=== PATIENT | male | born 1940 | race Caucasian/White ===

== ENCOUNTER 2018-04-24 22:45 | Inpatient (IN) | payer OTHER ==
[~2018-04-24] VITALS: Ht 177.8 cm; Wt 69.3 kg
[~2018-04-24 22:45] MED LIST: ADVAIR 250-501 EACH IH; ALTACE10 MG PO; Lactinex,Floranex PO; Levaquin PO; NEXIUM40 MG PO; PROVENTIL,2.5 MG/0.5 IH; THEO-DUR,THEOC200 MG PO; Tylenol Regular Stre PO; VENTOLIN5 MG/1 ML IH; predniSONE PO
[2018-04-24 23:18] LABS: HEMATOCRIT 41.2 % (38.0-50.0); HEMOGLOBIN 13.6 G/DL (12.5-16.6); MCH 28.7 PG (29.0-34.0); MCV 86.9 FL (86-99); PLATELET COUNT 228 K/uL (156-360); RBC DIS.WIDTH-CV 17.5 % (11.8-14.6); RBC DIS.WIDTH-SD 55.8 % (39-53); RED BLOOD COUNT 4.74 M/uL (4.00-5.50); WHITE BLOOD COUNT 9.7 K/uL (4.1-10.2)
[2018-04-24 23:26] LABS: ALBUMIN 3.8 g/dL (3.2-4.8)
[2018-04-24 23:27] LABS: CHLORIDE 103 mEq/L (99-109); POTASSIUM 3.6 mEq/L (3.7-5.4); SODIUM 138 mEq/L (136-147)
[2018-04-24 23:29] LABS: GLUCOSE 151 mg/dL (70-99); TOTAL PROTEIN 7.4 g/dL (6.4-8.3)
[2018-04-24 23:31] LABS: TOTAL BILIRUBIN 0.6 mg/dL (0.0-1.0)
[2018-04-24 23:32] LABS: ALKALINE PHOSPHATASE 58 IU/L (3-129)
[2018-04-24 23:33] LABS: CREATININE 0.9 mg/dL (0.6-1.3); GFR ESTIMATE (CALCULATED) > 59 mL/min/ (58.99-99999)
[2018-04-24 23:34] LABS: AST (GOT) 13 IU/L (2-34); UREA NITROGEN (BUN) 6 mg/dL (9-23)
[2018-04-24 23:35] LABS: ALT (GPT) 8 IU/L (3-49)
[2018-04-24 23:36] LABS: LIPASE 34 U/L (1.0-51.0)
[2018-04-24 23:39] LABS: BASE EXCESS 2.3 mEq/L (-3 to +3); BICARBONATE 28.8 mEq/L (22-26); COMMENTS - BLOOD GASES A+C+; DEVICE VENT; FI02 40 %; METHEMOGLOBIN 1.6 % (0-1.5); MODE SPONT; PCO2 51 mm Hg (35-45); PEEP 5 CM/H20; PO2 122 mm Hg (80-100); PRES. SUPPORT 10 CM/H2O; SITE RR; TOTAL RESP RATE 20 resp/min; pH 7.36 (7.35-7.45)
[2018-04-24 23:39] LABS: TROP-I INTERPRETATION NEGATIVE; TROPONIN-I 0.01 ng/mL (0.0-0.30)
[2018-04-25] MEDS ORDERED: KETOCONAZOLE60 GM TP (00:43)
[2018-04-25] MEDS ORDERED: OMEPRAZOLE40 M1 PO (00:44)
[2018-04-25] MEDS ORDERED: ALBUTEROL2.5 MG/3 M IH (00:44)
[2018-04-25] MEDS ORDERED: VENTOLIN HFA18 GM IH (00:45)
[2018-04-25] MEDS ORDERED: ADVAIR 250/501 DISK IH (00:47)
[2018-04-25] MEDS ORDERED: ATROVENT 00.5 MG/2.5 IH (00:47)
[2018-04-25] MEDS ORDERED: METOPROLOL TART50 MG PO (00:49)
[2018-04-25] MEDS ORDERED: LO-DOSE ASPIRIN81 M2 PO (01:01)
[2018-04-25 02:00] VITALS: BP 176/98
[2018-04-25 07:39] VITALS: BP 183/94
[2018-04-25 08:22] LABS: HEMATOCRIT 44.2 % (38.0-50.0); HEMOGLOBIN 13.8 G/DL (12.5-16.6); MCH 27.3 PG (29.0-34.0); MCHC 31.2 G/DL (30.0-36.0); MCV 87.5 FL (86-99); PLATELET COUNT 251 K/uL (156-360); RBC DIS.WIDTH-CV 18.1 % (11.8-14.6); RBC DIS.WIDTH-SD 57.5 % (39-53); RED BLOOD COUNT 5.05 M/uL (4.00-5.50); WHITE BLOOD COUNT 4.9 K/uL (4.1-10.2)
[2018-04-25 12:07] VITALS: BP 152/89
[2018-04-25 16:11] VITALS: BP 175/94
[2018-04-25 19:41] VITALS: BP 147/90
[2018-04-25 23:39] VITALS: BP 146/81
[2018-04-26 04:10] VITALS: BP 144/85
[2018-04-26 06:05] LABS: BASOPHIL (%) 0.1 % (0-1); EOSINOPHIL (%) 0 % (0-5); HEMOGLOBIN 13.4 G/DL (12.5-16.6); IMMATURE GRANULOCYTE (%) 1.2 % (0.0-0.7); LYMPHOCYTE (%) 6.7 % (15-42); LYMPHOCYTE COUNT 0.7 K/uL (1.0-2.8); MCH 27.3 PG (29.0-34.0); MCHC 31.2 G/DL (30.0-36.0); MCV 87.8 FL (86-99); MONOCYTE (%) 2.5 % (3-12); MONOCYTE COUNT 0.3 K/uL (0-0.8); NEUTROPHIL (%) 89.5 % (45-76); NEUTROPHIL COUNT 9.3 K/uL (1.8-6.4); PLATELET COUNT 250 K/uL (156-360); RBC DIS.WIDTH-CV 18.4 % (11.8-14.6); RBC DIS.WIDTH-SD 58.4 % (39-53); WHITE BLOOD COUNT 10.4 K/uL (4.1-10.2)
[2018-04-26 06:31] LABS: ALBUMIN 3.8 G/DL (3.2-4.8); ALKALINE PHOSPHATASE 44 IU/L (3-129); ALT (GPT) 7 IU/L (3-49); AST (GOT) 17 IU/L (2-34); CHLORIDE 100 MEQ/L (99-109); CREATININE 0.9 MG/DL (0.6-1.3); GFR ESTIMATE (CALCULATED) > 59 mL/min/ (58.99-99999); GLUCOSE 143 mg/dL (70-99); SODIUM 140 MEQ/L (136-147); TOTAL BILIRUBIN 0.9 MG/DL (0.0-1.0); UREA NITROGEN (BUN) 15 mg/dL (9-23)
[2018-04-26 07:16] VITALS: BP 158/89
[2018-04-26 12:07] VITALS: BP 148/78
[2018-04-26 15:54] VITALS: BP 151/81
[2018-04-26 19:17] VITALS: BP 143/84
[2018-04-26 23:38] VITALS: BP 153/92
[2018-04-27 03:34] VITALS: BP 140/82
[2018-04-27 08:10] VITALS: BP 146/91
[2018-04-27 11:20] VITALS: BP 138/77
[2018-04-27 15:05] VITALS: BP 155/83
[2018-04-27 20:00] VITALS: BP 152/82
[2018-04-28] VITALS: BP 152/86
[2018-04-28 04:00] VITALS: BP 164/92
[2018-04-28 07:55] VITALS: BP 156/92
[2018-04-28] MEDS ORDERED: PREDNISONE10 MG PO (11:00)
[2018-04-28] MEDS ORDERED: AUGMENTIN875 MG PO (11:00)
[2018-04-28 11:50] VITALS: BP 140/84
== END 2018-04-28 12:42 | disposition home health service (06) | DRG 190 ==
LOC: EME → EDBD 22:45 → EME 22:45 → 5SOUTH 04-25 00:42 → EDOF 04-25 00:42 → ENRESERV 04-25 01:01 → 5SOUTH 04-25 01:29
PROVIDERS: Emergency Medicine; Internal Medicine; Physician Assistant
PROC: 5A09357 Assistance with Respiratory Ventilation, Less than 24 Consecutive Hours, Continuous Positive Airway Pressure (ICD-10-PCS; principal; 2018-04-25)
DX: J44.1 Chronic obstructive pulmonary disease with (acute) exacerbation (principal); J96.21 Acute and chronic respiratory failure with hypoxia; J44.0 Chronic obstructive pulmonary disease with (acute) lower respiratory infection; J20.9 Acute bronchitis, unspecified; I10 Essential (primary) hypertension; K21.9 Gastro-esophageal reflux disease without esophagitis; R60.0 Localized edema; Z99.81 Dependence on supplemental oxygen; Z87.891 Personal history of nicotine dependence; Z79.82 Long term (current) use of aspirin
CPT/HCPCS: 36600; 71045; 71275; 80053; 83690; 83880; 84484; 85025; 85027; 93005; 93970; 94002; 94640; 94760; 94799; 99281; 99285; J0696; J1650; J2060; J2930; J7030; J7512